=== PATIENT | female | born 1930 | race American Indian/Alaskan Native ===

== ENCOUNTER 2017-04-23 06:25 | Day surgery (SDC) | payer MEDICARE ==
[2017-04-23 07:12] VITALS: BMI 27.1
[2017-04-23 07:56] VITALS: O2SAT 100
[2017-04-23] MEDS ORDERED: Etomidate 20 mg/10ml Inj IV ONE (08:27)
[2017-04-23] MEDS ORDERED: Propofol 10 mg/ml Inj (20 ML) ONE (08:27)
--- NOTE | 2017-04-23 08:39 | CP.SDSHP ---
Same Day Surgery H & P - History Proposed Procedure: EGD Pre-Op Diagnosis: Dyspepsia, anemia - Previous Medical/Surgical History Cardiac: Hypertension Endocrine/Metabolic: Diabetes Previous Surgical History: Permanent pacemaker - Allergies Allergies: Allergies No Known Allergies Allergy (Verified 04/23/17 07:11) - Current Medications Current Medications: See reconciliation sheet - Physical Exam General Appearance: WD WN female in NAD Vital Signs: Vital Signs 04/23/17 04/23/17 07:42 08:18 Temperature 97.6 F 97.6 F Pulse Rate 65 65 Respiratory 19 19 Rate Blood Pressure 133/65 133/65 O2 Sat by Pulse 100 100 Oximetry Mental Status: Alert & Oriented x3 Neuro: WNL Heart: WNL Lungs: WNL GI: WNL - {Optional Preform as Required} Abdomen: WNL - Impression Impression: Dyspepsia, anemia Pt. Evaluated Today:Candidate for Anesthesia & Procedure: Yes - Date & Time Date: 04/23/17 Time: 08:39 Short Stay Discharge - Short Stay Discharge Admitting Diagnosis/Reason for Visit: ANEMIA Disposition: HOME/ ROUTINE
[2017-04-23 09:25] VITALS: TEMP 97.3
[2017-04-23 09:54] VITALS: BP 145/57; PULSE 65; RESP 17
== END 2017-04-23 10:20 | disposition home or self-care (01) ==
LOC: C.ENDO 06:25
PROVIDERS: ATTEND Internal Medicine Gastroenterology
DX: K29.70 Gastritis, unspecified, without bleeding (principal); D50.9 Iron deficiency anemia, unspecified; K44.9 Diaphragmatic hernia without obstruction or gangrene; I10 Essential (primary) hypertension; D64.9 Anemia, unspecified
CPT/HCPCS: 43236; 43239; 82948; 88305; J0171; J2001; J2704

== ENCOUNTER 2017-07-18 13:46 | Emergency (ER) | payer MEDICARE ==
[2017-07-18 13:46] VITALS: BMI 27.1
[2017-07-18 13:52] VITALS: O2SAT 100
[2017-07-18] MEDS ORDERED: Iohexol 240 (50 ml) PO STA (14:08)
--- NOTE | 2017-07-18 14:25 | C.PDOC ---
History Of Present Illness 87 year old female presents to Emergency Department for evaluation of gradual worsening of left flank pain for the last 3 days. Patient states that pain was initially intermittent but is more constant now. Patient states that pain radiates to the left side of her abdomen and up to the left side of her chest, described as pressure sensation. Otherwise, denies any nausea, vomiting, diarrhea, changes in bowel habits, dysuria, hematuria, frequency, cough, shortness of breath, fever, or chills. Denies having similar symptoms in the past. Time Seen by Provider: 07/18/17 13:58 Chief Complaint (Nursing): Abdominal Pain History Per: Patient History/Exam Limitations: no limitations Onset/Duration Of Symptoms: Days (3) Current Symptoms Are (Timing): Still Present Location Of Pain/Discomfort: Other (left side of abdomen) Radiation Of Pain To:: Flank (left) Quality Of Discomfort: Pressure Associated Symptoms: Back Pain. denies: Fever, Chills, Nausea, Vomiting, Diarrhea, Loss Of Appetite, Constipation, Urinary Symptoms Exacerbating Factors: None Alleviating Factors: None Recent travel outside of the [place]: No Additional History Per: Patient Abnormal Vaginal Bleeding: No Past Medical History Reviewed: Historical Data, Nursing Documentation, Vital Signs Vital Signs: Last Vital Signs Temp 97.6 F 07/18/17 13:49 Pulse 59 L 07/18/17 15:11 Resp 14 07/18/17 15:11 BP 145/72 07/18/17 15:11 Pulse Ox 100 07/18/17 15:11 - Medical History PMH: Anemia (IRON DEFICIENCY), Arthritis, CAD, Cardia Arrhythmia ("PALPATIONS"- MD NOTE: PAROXYSMAL A-FIB), Colonic Polyps (ADENOMATOUS), COPD, Diabetes, Fractures (BILAT. ARMS-SURGERY DONE-BILAT.), HTN, Hypercholesterolemia, Hyperthyroidism (NO LONGER ON MEDS.) Denies: CVA, Chronic Kidney Disease, TIA - [facility] Procedures AMBULATORY CARDIAC MONITORING (11/23/14) REVISION OR RELOCATION OF CARDIAC DEVICE POCKET (11/23/14) Family History: States: Unknown Family Hx - Social History Hx Tobacco Use: No Hx Alcohol Use: No Hx Substance Use: No - Immunization History Hx Tetanus Toxoid Vaccination: No Hx Influenza Vaccination: No Hx Pneumococcal Vaccination: No Review Of Systems Except As Marked, All Systems Reviewed And Found Negative. Constitutional: Negative for: Fever, Chills Cardiovascular: Negative for: Palpitations, Edema, Light Headedness Respiratory: Negative for: Cough, Shortness of Breath Gastrointestinal: Positive for: Abdominal Pain. Negative for: Nausea, Vomiting , Diarrhea Genitourinary: Negative for: Dysuria, Frequency, Hematuria Musculoskeletal: Positive for: Back Pain (left flank pain) Neurological: Negative for: Headache, Dizziness Physical Exam - Physical Exam Appears: Non-toxic, No Acute Distress Skin: Warm, Dry, No Rash Head: Atraumatic, Normacephalic Eye(s): bilateral: Normal Inspection, EOMI Nose: Normal Oral Mucosa: Moist Neck: Normal ROM, Supple Chest: Symmetrical Cardiovascular: Rhythm Regular Respiratory: Rales (bibasilar rales worse on the left side), No Rhonchi, No Wheezing Gastrointestinal/Abdominal: Bowel Sounds (normal), Soft, Tenderness (epigastric) , No Guarding, No Rebound Back: No CVA Tenderness, No Vertebral Tenderness Extremity: Normal ROM, No Pedal Edema Neurological/Psych: Oriented x3, Normal Speech ED Course And Treatment - Laboratory Results Result Diagrams: 07/18/17 14:52 07/18/17 16:07 Lab Interpretation: Abnormal Interpretation Of Abnormal: CBC and CMP unremarkable. Urine +WBC 54 with + leukocyte esterase O2 Sat by Pulse Oximetry: 100 (on RA) Pulse Ox Interpretation: Normal - CT Scan/US CT abdomen and pelvis with contrast Other Rad Studies (CT/US): Read By Radiologist, Radiology Report Reviewed CT/US Interpretation: Accession No. : [id number]. Patient Name / ID : JENNIFER SHELDON / [id number]. Exam Date : 07/18/2017 17:14:58 ( Approved ). Study Comment : Sex / Age : F / 87Y. Creator : Pia Shaw MD. Dictator : Pia Shaw MD. Svp : Corporate Responsibility Officer : Pia Shaw MD. Approver2 : Report Date : 07/18/2017 17:44:52. My Comment : . PROCEDURE: CT Abdomen and Pelvis with contrast. HISTORY: Abdominal pain. COMPARISON: 02/07/2017. TECHNIQUE: CT scan of the abdomen and pelvis was performed after intravenous administration of contrast. Oral contrast was administered. Coronal and sagittal reformatted images were obtained. Contrast : 100 mL Omnipaque 300. Radiation dose: Total exam DLP = 562.58 mGy-cm. This CT exam was performed using one or more of the following dose reduction techniques: Automated exposure control, adjustment of the mA and/or kV according to patient size, and/or use of iterative reconstruction technique. FINDINGS: LOWER THORAX: The lung bases are clear. LIVER: The liver is normal in size and there is homogeneous enhancement. No gross lesion or ductal dilatation. GALLBLADDER AND BILE DUCTS: The gallbladder is contracted. PANCREAS: There is mild diffuse atrophy of the pancreas. No gross lesion or ductal dilatation. SPLEEN: The spleen is normal in size and there is homogeneous enhancement. ADRENALS: Both adrenal glands are normal in size without discrete nodule. KIDNEYS AND URETERS: Both kidneys are normal in size and there is homogeneous enhancement. There is a simple cortical cyst in the upper pole of the right kidney. No hydronephrosis. No solid mass. VASCULATURE: No aortic aneurysm. BOWEL: The small bowel loops are normal in caliber. There is moderate amount of stool in the left hemicolon. No bowel dilatation or obstruction. APPENDIX: Normal appendix. PERITONEUM: No free fluid. No free air. LYMPH NODES: No enlarged lymph nodes. BLADDER: Grossly normal in appearance. REPRODUCTIVE: Unremarkable. BONES: There is diffuse bone demineralization. Is an age indeterminate but likely chronic superior endplate compression deformity in the L1 vertebral body. OTHER FINDINGS: None. IMPRESSION: No acute abdominal or pelvic abnormality. Constipation. No evidence of bowel obstruction. Progress Note: Blood work, UA, Abd & Pelvis CT, EKG, CXR ordered and reviewed. Patient was given Omnipaque PO. Reevaluation Time: 18:18 Reassessment Condition: Improved Disposition Counseled Patient/Family Regarding: Studies Performed, Diagnosis, Need For Followup, Rx Given - Disposition Referrals: Blanca Francois MD [Staff Provider] - Disposition: HOME/ ROUTINE Disposition Time: 18:21 Condition: IMPROVED Prescriptions: Nitrofurantoin Macrocrystals [Macrobid] 1 cap PO BID #14 cap Instructions: Urinary Tract Infection in Women (ED), Constipation (ED) Forms: [facility] ([place]) - Clinical Impression Clinical Impression: UTI (urinary tract infection), Constipation, Flank pain - Scribe Statement The provider has reviewed the documentation as recorded by the Scribe Paulina Chauhan All medical record entries made by the Scribe were at my direction and personally dictated by me. I have reviewed the chart and agree that the record accurately reflects my personal performance of the history, physical exam, medical decision making, and the department course for this patient. I have also personally directed, reviewed, and agree with the discharge instructions and disposition.
[2017-07-18 14:57] LABS: BASO # 0.1 K/uL (0.0-0.2); EOS # 0.2 K/uL (0.0-0.7); EOS % 3.6 % (0.0-4.0); HEMATOCRIT 36.3 % (34.0-47.0); LYMPH # 2.1 K/uL (1.0-4.3); LYMPH % 34.2 % (20.0-40.0); MEAN CELL VOLUME 89.7 fL (81.0-99.0); MEAN CORPUSCULAR HEMOGLOBIN 30.3 pg (27.0-31.0); MEAN CORPUSCULAR HGB CONC 33.7 g/dL (33.0-37.0); MEAN PLATELET VOLUME 8.5 fL (7.2-11.7); MONO # 0.7 K/uL (0.0-0.8); MONO % 11.4 % (0.0-10.0); RED CELL DISTRIBUTION WIDTH 14.5 % (11.5-14.5); WHITE BLOOD COUNT 6.2 K/uL (4.8-10.8)
[2017-07-18] MEDS ORDERED: Iohexol 240 (50 ml) ONE (14:57)
--- NOTE | 2017-07-18 15:05 | RAD ---
HISTORY: SOB COMPARISON: Chest x-ray performed 10/27/15 TECHNIQUE: Chest, one view. FINDINGS: LUNGS: Mild biapical pleural thickening. No focal consolidation. Please note that chest x-ray has limited sensitivity for the detection of pulmonary masses. PLEURA: No significant pleural effusion identified. No definite pneumothorax . CARDIOVASCULAR: Dual lead left-sided pacemaker. Borderline cardiomegaly. Tortuous aorta. Atherosclerotic calcifications. OSSEOUS STRUCTURES: Degenerative changes. Osseous demineralization. Chronic appearing deformities of bilateral humeral heads ; correlate clinically. VISUALIZED UPPER ABDOMEN: Unremarkable. OTHER FINDINGS: None. IMPRESSION: Dual lead left-sided pacemaker. Borderline cardiomegaly. Tortuous aorta. Atherosclerotic calcifications. Mild biapical pleural thickening. Chronic appearing deformities involving bilateral humeral heads. Osseous demineralization. Degenerative changes.
[2017-07-18 15:12] VITALS: RESP 14
[2017-07-18] MEDS ORDERED: Iohexol 300 100 ML IJ ONE (16:11)
[2017-07-18 16:16] LABS: CHLORIDE 99 mmol/L (98-107)
[2017-07-18 16:18] LABS: POTASSIUM 4.6 mmol/L (3.6-5.2); SODIUM 137 mmol/L (132-148)
[2017-07-18 16:20] LABS: ALB/GLOB RATIO 1.1 (1.0-2.1); ALKALINE PHOSPHATASE 91 U/L (38-126); AST/SGOT 35 U/L (14-36); BILIRUBIN,TOTAL 0.9 mg/dL (0.2-1.3); BLOOD UREA NITROGEN 26 mg/dL (7-17); CARBON DIOXIDE 27 mmol/L (22-30); GFR AFRICAN-AMERICAN > 60; TOTAL PROTEIN 7.6 g/dL (6.3-8.3)
[2017-07-18 16:21] LABS: ALT/SGPT 33 U/L (9-52); CALCIUM 9.9 mg/dl (8.6-10.4); GLUCOSE,RANDOM 128 mg/dL (65-105)
[2017-07-18 17:05] LABS: RBC URINE 1 /hpf (0-3); URINE BACTERIA FEW (<OCC); URINE BILIRUBIN NEGATIVE (NEGATIVE); URINE BLOOD NEGATIVE (NEGATIVE); URINE COLOR Yellow (YELLOW); URINE GLUCOSE (UA) NORMAL (Normal); URINE KETONE NEGATIVE (NEGATIVE); URINE LEUKOCYTE ESTERASE 2+ Leu/uL (Negative); URINE PROTEIN NEGATIVE (NEGATIVE); URINE UROBILINOGEN NORMAL mg/dL (0.2-1.0); WBC URINE 54 /hpf (0-5)
--- NOTE | 2017-07-18 17:46 | CT ---
PROCEDURE: CT Abdomen and Pelvis with contrast HISTORY: Abdominal pain COMPARISON: 02/07/2017 TECHNIQUE: CT scan of the abdomen and pelvis was performed after intravenous administration of contrast. Oral contrast was administered. Coronal and sagittal reformatted images were obtained. Contrast: 100 mL Omnipaque 300 Radiation dose: Total exam DLP = 562.58 mGy-cm. This CT exam was performed using one or more of the following dose reduction techniques: Automated exposure control, adjustment of the mA and/or kV according to patient size, and/or use of iterative reconstruction technique. FINDINGS: LOWER THORAX: The lung bases are clear. LIVER: The liver is normal in size and there is homogeneous enhancement. No gross lesion or ductal dilatation. GALLBLADDER AND BILE DUCTS: The gallbladder is contracted. PANCREAS: There is mild diffuse atrophy of the pancreas. No gross lesion or ductal dilatation. SPLEEN: The spleen is normal in size and there is homogeneous enhancement. ADRENALS: Both adrenal glands are normal in size without discrete nodule. KIDNEYS AND URETERS: Both kidneys are normal in size and there is homogeneous enhancement. There is a simple cortical cyst in the upper pole of the right kidney. No hydronephrosis. No solid mass. VASCULATURE: No aortic aneurysm. BOWEL: The small bowel loops are normal in caliber. There is moderate amount of stool in the left hemicolon. No bowel dilatation or obstruction. APPENDIX: Normal appendix. PERITONEUM: No free fluid. No free air. LYMPH NODES: No enlarged lymph nodes. BLADDER: Grossly normal in appearance. REPRODUCTIVE: Unremarkable. BONES: There is diffuse bone demineralization. Is an age indeterminate but likely chronic superior endplate compression deformity in the L1 vertebral body. OTHER FINDINGS: None. IMPRESSION: No acute abdominal or pelvic abnormality. Constipation. No evidence of bowel obstruction.
[2017-07-18 18:21] VITALS: PULSE 69; TEMP 98.2
[2017-07-18 18:43] VITALS: BP 160/63
--- NOTE | 2017-07-19 15:35 | CARD ---
APPROVED REPORT EKG Measurement Heart [id number] MA 140P [id number] <Conclusion> Atrial-paced rhythm Nonspecific intraventricular block Abnormal ECG
== END 2017-07-18 18:56 | disposition home or self-care (01) ==
LOC: C.ER 13:46
DX: N39.0 Urinary tract infection, site not specified (principal); K59.00 Constipation, unspecified; R10.9 Unspecified abdominal pain; I49.9 Cardiac arrhythmia, unspecified; I10 Essential (primary) hypertension
CPT/HCPCS: 71010; 74177; 80053; 81001; 83690; 84484; 85025; 87086; 87181; 93005; 99285; Q9966; Q9967

== ENCOUNTER 2017-07-23 13:05 | Emergency (ER) | payer MEDICARE ==
[2017-07-23 13:05] VITALS: BMI 27.1
[2017-07-23 13:36] VITALS: PULSE 60
[2017-07-23] MEDS ORDERED: Sodium Chloride 0.9% 500 ML IV STA (14:14)
[2017-07-23] MEDS ORDERED: Sodium Chloride 0.9% 500 ML IV ONE (15:09)
[2017-07-23 15:13] LABS: BASO # 0.1 K/uL (0.0-0.2); BASO % 1.6 % (0.0-2.0); EOS # 0.2 K/uL (0.0-0.7); EOS % 4.6 % (0.0-4.0); HEMATOCRIT 36.4 % (34.0-47.0); LYMPH % 36.9 % (20.0-40.0); MEAN CELL VOLUME 90.8 fL (81.0-99.0); MEAN PLATELET VOLUME 9.1 fL (7.2-11.7); MONO # 0.6 K/uL (0.0-0.8); MONO % 10.7 % (0.0-10.0); RED CELL DISTRIBUTION WIDTH 14.2 % (11.5-14.5); WHITE BLOOD COUNT 5.3 K/uL (4.8-10.8)
--- NOTE | 2017-07-23 15:18 | C.PDOC ---
History Of Present Illness 87 y/o female presents to emergency department with complaint of bilateral flank pain. Patient was seen in this ER on 07/18/17, evaluated for left flank pain, and was diagnosed with UTI and constipation, discharged on Macrobid. Patient denies fever, dysuria, or other urinary symptoms, but reports pain has not improved. Time Seen by Provider: 07/23/17 13:39 Chief Complaint (Nursing): Female Genitourinary History Per: Patient History/Exam Limitations: no limitations Onset/Duration Of Symptoms: Days Current Symptoms Are (Timing): Still Present Reports Recently: Seen In ED Recent travel outside of the [place]: No Past Medical History Reviewed: Historical Data, Nursing Documentation, Vital Signs Vital Signs: Last Vital Signs Temp 97.8 F 07/23/17 18:36 Pulse 60 07/23/17 18:36 Resp 18 07/23/17 18:36 BP 150/56 L 07/23/17 18:36 Pulse Ox 99 07/23/17 18:44 - Medical History PMH: Anemia (IRON DEFICIENCY), Arthritis, CAD, Cardia Arrhythmia ("PALPATIONS"- MD NOTE: PAROXYSMAL A-FIB), Colonic Polyps (ADENOMATOUS), COPD, Diabetes, Fractures (BILAT. ARMS-SURGERY DONE-BILAT.), HTN, Hypercholesterolemia, Hyperthyroidism (NO LONGER ON MEDS.) - [facility] Procedures AMBULATORY CARDIAC MONITORING (11/23/14) REVISION OR RELOCATION OF CARDIAC DEVICE POCKET (11/23/14) Family History: States: Unknown Family Hx - Social History Hx Tobacco Use: No Hx Alcohol Use: No Hx Substance Use: No - Immunization History Hx Tetanus Toxoid Vaccination: No Hx Influenza Vaccination: No Hx Pneumococcal Vaccination: No Review Of Systems Except As Marked, All Systems Reviewed And Found Negative. Constitutional: Negative for: Fever, Chills Cardiovascular: Negative for: Chest Pain Respiratory: Negative for: Cough, Shortness of Breath Gastrointestinal: Positive for: Abdominal Pain (bilateral flank). Negative for : Nausea, Vomiting, Constipation Genitourinary: Negative for: Dysuria, Frequency, Hematuria, Vaginal Discharge, Pelvic Pain Skin: Negative for: Rash Neurological: Negative for: Headache, Dizziness Physical Exam - Physical Exam Appears: Non-toxic, No Acute Distress Skin: Normal Color, Warm, Dry Head: Atraumatic, Normacephalic Oral Mucosa: Moist Chest: Symmetrical Cardiovascular: Rhythm Regular Respiratory: Normal Breath Sounds, No Rales, No Rhonchi, No Wheezing Gastrointestinal/Abdominal: Soft, Tenderness (diffuse), No Guarding, No Rebound Back: No CVA Tenderness, Paraspinal Tenderness (lower back) Extremity: Normal ROM Neurological/Psych: Oriented x3, Normal Speech, Normal Cognition ED Course And Treatment - Laboratory Results Result Diagrams: 07/23/17 15:07 07/23/17 15:07 ECG: Interpreted By Me ECG Rhythm: A Paced Rate From EC (bpm) O2 Sat by Pulse Oximetry: 99 Pulse Ox Interpretation: Normal - Radiology CXR: Viewed By Me, Read By Radiologist CXR Interpretation: Yes: No Acute Disease - Other Rad LS SPINE X-RAY X-Ray: Viewed By Me, Read By Radiologist Interpretation: Accession No. : [id number]. Patient Name / ID : JENNIFER SHELDON / [id number]. Exam Date : 07/23/2017 14:28:09 ( Approved ). Study Comment : Sex / Age : F / 87Y. Creator : Callum Carter MD. Dictator : Callum Carter MD. Checker Cashier : Certified Residential Medication Aide : Callum Carter MD. Approver2 : Report Date : 07/23/2017 15:22:13. My Comment : . PROCEDURE: Radiographs of the Lumbar Spine. HISTORY: BACK PAIN, ATRAUMATIC. COMPARISON : No prior. FINDINGS: BONES: Vertebral bodies maintained in height. The transverse processes and posterior elements appear intact. There is grade 1 anterolisthesis at L5-S1. DISC SPACES: Unremarkable. OTHER FINDINGS: None. IMPRESSION: No acute fracture. Grade 1 anterolisthesis at L5-S1. - CT Scan/US Ultrasound RUQ Other Rad Studies (CT/US): Read By Radiologist, Radiology Report Reviewed CT/US Interpretation: Accession No. : [id number]. Patient Name / ID : JENNIFER SHELDON / [id number]. Exam Date : 07/23/2017 15:31:45 ( Approved ). Study Comment : Sex / Age : F / 87Y. Creator : Iris Bender MD. Dictator : Iris Bender MD. Checker Cashier : Certified Residential Medication Aide : Iris Bender MD. Approver2 : Report Date : 07/23/2017 15:58:46. My Comment : . HISTORY: Pain. COMPARISON: CT abdomen and pelvis with contrast performed 07/18/17. TECHNIQUE: Sonographic evaluation of the right upper quadrant of the abdomen. FINDINGS: LIVER: Measures 11.8 and cm in length. Echogenic liver may be seen in setting of hepatic parenchymal disease or fatty infiltration. No focal hepatic mass identified. The main portal vein appears patent with normal directional flow. No intrahepatic bile duct dilatation. GALLBLADDER: No gallstones. No gallbladder wall thickening or pericholecystic edema. Negative sonographic Pinzon's sign as assessed by the speech language pathologist travel. COMMON BILE DUCT: Measures 4 mm. PANCREAS: Not well-visualized. RIGHT KIDNEY: Measures 9.7 x 3.3 x 4.7 cm. 1.5 x 1.3 x 1.5 cm upper pole anechoic avascular lesion consistent with a cyst. No obstructing calculus or hydronephrosis identified. AORTA: Limited visualization appears grossly unremarkable. IVC: Limited visualization appears grossly unremarkable. OTHER FINDINGS: None . IMPRESSION : Echogenic liver may be seen in setting of hepatic parenchymal disease or fatty infiltration. 1.5 cm right upper pole renal cyst. Progress Note: EKG, CxR, bloodwork ordered and reviewed. LS spine x-rays and abdominal ultrasound ordered and reviewd. IVFs given. On reassessment, patient is resting comfortably, and is in no acute distress. case was d/w PMD who agreed with the plan to d/c patient home on Ultracet. Patient instructed to follow up with Dr. Francois within 1-2 days. Copies of findings provided to patient to bring to PMD. Disposition - Disposition Referrals: Blanca Francois MD [Staff Provider] - Disposition: HOME/ ROUTINE Disposition Time: 18:35 Condition: STABLE Additional Instructions: Follow up with within 1-2 days. Return to Ed if feel worse. Prescriptions: traMADol/Acetaminophen [Ultracet 325 MG-37.5 MG] 1 tab PO Q6 PRN #30 tab PRN Reason: Pain Instructions: Flank Pain (ED), Back Pain (ED) Forms: [employer] ([place]) - Clinical Impression Clinical Impression: Flank pain - PA / COMMERCIAL DIRECTOR / Resident Statement MD/DO has reviewed & agrees with the documentation as recorded. - Scribe Statement The provider has reviewed the documentation as recorded by the Scribnadiya Bosch All medical record entries made by the Shayibnadiya were at my direction and personally dictated by me. I have reviewed the chart and agree that the record accurately reflects my personal performance of the history, physical exam, medical decision making, and the department course for this patient. I have also personally directed, reviewed, and agree with the discharge instructions and disposition.
[2017-07-23 15:19] LABS: INR 1.1
--- NOTE | 2017-07-23 15:23 | RAD ---
PROCEDURE: Radiographs of the Lumbar Spine. HISTORY: BACK PAIN, ATRAUMATIC COMPARISON: No prior. FINDINGS: BONES: Vertebral bodies maintained in height. The transverse processes and posterior elements appear intact. There is grade 1 anterolisthesis at L5-S1. DISC SPACES: Unremarkable. OTHER FINDINGS: None. IMPRESSION: No acute fracture. Grade 1 anterolisthesis at L5-S1.
[2017-07-23 15:27] LABS: CHLORIDE 99 mmol/L (98-107)
[2017-07-23 15:28] LABS: SODIUM 131 mmol/L (132-148)
[2017-07-23 15:30] LABS: ALB/GLOB RATIO 1.1 (1.0-2.1); ALKALINE PHOSPHATASE 90 U/L (38-126); ALT/SGPT 30 U/L (9-52); AST/SGOT 32 U/L (14-36); BILIRUBIN,TOTAL 0.8 mg/dL (0.2-1.3); BLOOD UREA NITROGEN 22 mg/dL (7-17); CARBON DIOXIDE 23 mmol/L (22-30); GFR AFRICAN-AMERICAN > 60; GLUCOSE,RANDOM 238 mg/dL (65-105); TOTAL PROTEIN 7.4 g/dL (6.3-8.3)
[2017-07-23 15:31] LABS: CALCIUM 9.3 mg/dl (8.6-10.4)
--- NOTE | 2017-07-23 15:57 | RAD ---
PROCEDURE: CHEST RADIOGRAPH, 1 VIEW HISTORY: FLANK/BACK PAIN COMPARISON: 07/18/2017 FINDINGS: LUNGS: Clear. PLEURA: No pneumothorax or pleural fluid seen. CARDIOVASCULAR: Permanent pacemaker. OSSEOUS STRUCTURES: Bilateral glenohumeral osteoarthritis. VISUALIZED UPPER ABDOMEN: Normal. OTHER FINDINGS: None. IMPRESSION: No active disease.
--- NOTE | 2017-07-23 16:00 | US ---
HISTORY: Pain COMPARISON: CT abdomen and pelvis with contrast performed 07/18/17 TECHNIQUE: Sonographic evaluation of the right upper quadrant of the abdomen. FINDINGS: LIVER: Measures 11.8 and cm in length. Echogenic liver may be seen in setting of hepatic parenchymal disease or fatty infiltration. No focal hepatic mass identified. The main portal vein appears patent with normal directional flow. No intrahepatic bile duct dilatation. GALLBLADDER: No gallstones. No gallbladder wall thickening or pericholecystic edema. Negative sonographic Pinzon's sign as assessed by the academic success coordinator. COMMON BILE DUCT: Measures 4 mm. PANCREAS: Not well-visualized. RIGHT KIDNEY: Measures 9.7 x 3.3 x 4.7 cm. 1.5 x 1.3 x 1.5 cm upper pole anechoic avascular lesion consistent with a cyst. No obstructing calculus or hydronephrosis identified. AORTA: Limited visualization appears grossly unremarkable. IVC: Limited visualization appears grossly unremarkable. OTHER FINDINGS: None . IMPRESSION: Echogenic liver may be seen in setting of hepatic parenchymal disease or fatty infiltration. 1.5 cm right upper pole renal cyst.
[2017-07-23 18:05] LABS: RBC URINE < 1 /hpf (0-3); URINE BACTERIA OCC (<OCC); URINE BILIRUBIN NEGATIVE (NEGATIVE); URINE BLOOD NEGATIVE (NEGATIVE); URINE COLOR Straw (YELLOW); URINE GLUCOSE (UA) 1+ mg/dL (Normal); URINE KETONE NEGATIVE (NEGATIVE); URINE LEUKOCYTE ESTERASE NEG Leu/uL (Negative); URINE PROTEIN NEGATIVE (NEGATIVE); URINE UROBILINOGEN NORMAL mg/dL (0.2-1.0); WBC URINE < 1 /hpf (0-5)
[2017-07-23 18:37] VITALS: BP 150/56; RESP 18; TEMP 97.8; O2SAT 99
--- NOTE | 2017-07-25 22:50 | CARD ---
APPROVED REPORT EKG Measurement Heart [id number] <Conclusion> Atrial-paced rhythm Nonspecific intraventricular block Abnormal ECG
== END 2017-07-23 19:02 | disposition home or self-care (01) ==
LOC: C.ER 13:05
DX: R10.9 Unspecified abdominal pain (principal)
CPT/HCPCS: 71010; 72100; 76705; 80053; 81001; 82550; 82553; 83690; 84484; 85025; 85610; 85730; 93005; 99285; J7040

== ENCOUNTER 2017-12-12 16:39 | Observation (INO) | payer MEDICARE ==
[2017-12-12 16:39] VITALS: BMI 27.1
--- NOTE | 2017-12-12 17:21 | C.PDOC ---
History Of Present Illness <Jojo Rodriguez - Last Filed: 12/12/17 18:15> <Darcie Smith - Last Filed: 12/12/17 19:29> 87 year old female with past medical history of diabetes, HTN, HLD, afib presents to the ED for hypoglycemia. Patient's granddaughter at bedside states she was trying to call her this morning and she was not answering her phone so she decided to go to her apartment and found her lethargic. She then called EMS and gave her grandmother juice and candies. Patient states she took her insulin in the evening, had her snack at 11pm, and when she woke up this morning she did not feel like getting out of bed. Her nephew at bedside states this occurred previously on Sunday same occurrence, patient woke up with low blood sugar and he gave her juice and peppermint candies and she then felt better. Patient states she has a mild headache currently but otherwise is feeling well. She denies sick contacts at home, denies chest pain, shortness of breath, nausea, vomiting, fever, diarrhea, constipation, or dysuria. PMD: Dr. Francois Past Medical History: diabetes, HTN, HLD, afib, pacemaker Past Surgical History: Pacemaker, left shoulder surgery Allergies: NKDA Social History: Lives at home with 91 year old sister and nephew, denies smoking , alcohol or drug use (Darcie Smith) <Jojo Rodriguez - Last Filed: 12/12/17 18:15> History Per: Patient History/Exam Limitations: no limitations <Darcie Smith - Last Filed: 12/12/17 19:29> Time Seen by Provider: 12/12/17 16:52 Chief Complaint (Nursing): Medical Clearance Past Medical History - Medical History PMH: Anemia (IRON DEFICIENCY), Arthritis, CAD, Cardia Arrhythmia ("PALPATIONS"- MD NOTE: PAROXYSMAL A-FIB), Colonic Polyps (ADENOMATOUS), COPD, Diabetes, Fractures (BILAT. ARMS-SURGERY DONE-BILAT.), HTN, Hypercholesterolemia, Hyperthyroidism (NO LONGER ON MEDS.) Denies: Chronic Kidney Disease, TIA Family History: States: Unknown Family Hx - Social History Hx Tobacco Use: No Hx Alcohol Use: No Hx Substance Use: No - Immunization History Hx Tetanus Toxoid Vaccination: No Hx Influenza Vaccination: No Hx Pneumococcal Vaccination: No <Jojo Rodriguez - Last Filed: 12/12/17 18:15> Vital Signs: Last Vital Signs Temp 97.8 F 12/12/17 17:02 Pulse 75 12/12/17 17:02 Resp 20 12/12/17 17:02 BP 141/79 12/12/17 17:02 Pulse Ox 100 12/12/17 18:15 - [facility] Procedures AMBULATORY CARDIAC MONITORING (11/23/14) REVISION OR RELOCATION OF CARDIAC DEVICE POCKET (11/23/14) Review Of Systems Constitutional: Negative for: Fever, Chills Cardiovascular: Negative for: Chest Pain, Palpitations Respiratory: Negative for: Cough, Shortness of Breath Gastrointestinal: Negative for: Nausea, Vomiting, Abdominal Pain, Diarrhea, Constipation Genitourinary: Negative for: Dysuria, Hematuria Neurological: Negative for: Weakness, Dizziness <Darcie Smith - Last Filed: 12/12/17 19:29> Physical Exam - Physical Exam Appears: Well, Non-toxic, No Acute Distress Skin: Normal Color Head: Atraumatic, Normacephalic Eye(s): bilateral: Normal Inspection, PERRL, EOMI Oral Mucosa: Moist Cardiovascular: Rhythm Irregular Respiratory: Normal Breath Sounds, No Accessory Muscle Use, No Stridor, No Wheezing Gastrointestinal/Abdominal: Normal Exam, Bowel Sounds (normal), Soft, No Tenderness, No Distention, No Guarding Extremity: No Tenderness, No Pedal Edema, No Calf Tenderness, No Swelling Neurological/Psych: Oriented x3, Normal Speech, Normal Cognition, Normal Cranial Nerves, Normal Motor, Normal Sensation (normal sensation to light touch) <Darcie Smith - Last Filed: 12/12/17 19:29> ED Course And Treatment O2 Sat by Pulse Oximetry: 100 <Jojo Rodriguez - Last Filed: 12/12/17 18:15> - Laboratory Results Result Diagrams: 12/12/17 17:21 12/12/17 17:21 ECG: Interpreted By Me <Darcie Smith - Last Filed: 12/12/17 19:29> Medical Decision Making <Jojo Rodriguez - Last Filed: 12/12/17 18:15> <Darcie Smith - Last Filed: 12/12/17 19:29> Medical Decision Making: Hypoglycemia - resolved - cbc: WNL - CMP: Glucose 139 - Repeat Acucheck: 139 - chest xray: No active disease - Patient is not sure what tablet she takes for her diabetes - EKG: Paced rhythm Asymptomatic UTI - UA: Positive - Ceftriaxone given once - Dr. Rodriguez spoke with PMD Dr. Francois who has accepted patient for observation. 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 / has examined the patient and agrees with the treatment plan. <Darcie Smith - Last Filed: 12/12/17 19:29>
[2017-12-12 17:25] LABS: BASO % 0.4 % (0.0-2.0); EOS % 0.2 % (0.0-4.0); HEMOGLOBIN 13.5 g/dL (11.0-16.0); LYMPH # 1.1 K/uL (1.0-4.3); LYMPH % 18.4 % (20.0-40.0); MEAN CELL VOLUME 93.2 fL (81.0-99.0); MEAN CORPUSCULAR HEMOGLOBIN 31.5 pg (27.0-31.0); MEAN CORPUSCULAR HGB CONC 33.8 g/dL (33.0-37.0); MEAN PLATELET VOLUME 8.8 fL (7.2-11.7); MONO # 0.4 K/uL (0.0-0.8); MONO % 5.8 % (0.0-10.0); NEUT # 4.7 K/uL (1.8-7.0); NEUT % 75.2 % (50.0-75.0); RBC 4.29 Mil/uL (3.80-5.20); RED CELL DISTRIBUTION WIDTH 13.6 % (11.5-14.5); WHITE BLOOD COUNT 6.3 K/uL (4.8-10.8)
[2017-12-12 17:38] LABS: ALB/GLOB RATIO 1.2 (1.0-2.1); ALBUMIN 3.9 g/dL (3.5-5.0); ALT/SGPT 41 U/L (9-52); AST/SGOT 40 U/L (14-36); BLOOD UREA NITROGEN 16 mg/dL (7-17); CALCIUM 10.1 mg/dl (8.6-10.4); GFR AFRICAN-AMERICAN > 60; GFR NON-AFRICAN AMERICAN > 60
--- NOTE | 2017-12-12 17:55 | RAD ---
PROCEDURE: CHEST RADIOGRAPH, 1 VIEW HISTORY: eval COMPARISON: 07/23/2017 FINDINGS: LUNGS: Clear. PLEURA: No pneumothorax or pleural fluid seen. CARDIOVASCULAR: Normal heart size. Permanent pacemaker. No congestive change. OSSEOUS STRUCTURES: No significant abnormalities. VISUALIZED UPPER ABDOMEN: Normal. OTHER FINDINGS: None. IMPRESSION: No active disease.
[2017-12-12 18:51] LABS: SQUAMOUS EPITHIAL 2 /hpf (0-5); URINE BACTERIA OCC (<OCC); URINE BILIRUBIN NEGATIVE (NEGATIVE); URINE BLOOD NEGATIVE (NEGATIVE); URINE CLARITY Hazy (Clear); URINE COLOR Yellow (YELLOW); URINE GLUCOSE (UA) 3+ mg/dL (Normal); URINE HYALINE CAST 0-2 /lpf (0-2); URINE NITRATE POSITIVE (NEGATIVE); URINE PROTEIN NEGATIVE (NEGATIVE); URINE UROBILINOGEN NORMAL mg/dL (0.2-1.0)
[2017-12-12 18:52] LABS: URINE LEUKOCYTE ESTERASE 1+ Leu/uL (Negative)
[2017-12-12] MEDS ORDERED: cefTRIAXone IV 1 gm in Dextros 50 ML IV STA (19:19)
[2017-12-12] MEDS ORDERED: cefTRIAXone IV 1 gm in Dextros 50 ML IVPB ONE (19:30)
[2017-12-13] MEDS: Ciprofloxacin 400mg/200ml D5W 400 MG/200 ML BAG IVPB SCH ×2 (02:00→13:30)
[2017-12-13] MEDS ORDERED: (Novolin R) Insulin Human Regular 100 units/ml vial SC SCH (07:30)
[2017-12-13] MEDS: Metoprolol Succinate 50 mg XL Tab PO SCH (09:49)
[2017-12-13] MEDS ORDERED: (Novolog) Insulin Aspart, Recombinant 100 u/ml 10 ml vial SC SCH (11:30)
[2017-12-13] MEDS: (Novolog) Insulin Aspart, Recombinant 100 u/ml 10 ml vial SC SCH ×2 (12:53→17:46)
--- NOTE | 2017-12-13 18:14 | CP.PCM.CON ---
History of Present Illness - History of Present Illness History of Present Illness: 87 year old female with past medical history of diabetes, HTN, HLD, afib presents to the ED for hypoglycemia. Patient's granddaughter at bedside states she was trying to call her this morning and she was not answering her phone so she decided to go to her apartment and found her lethargic. She then called EMS and gave her grandmother juice and candies. Patient states she took her insulin in the evening, had her snack at 11pm, and when she woke up this morning she did not feel like getting out of bed. Her nephew at bedside states this occurred previously on Sunday same occurrence, patient woke up with low blood sugar and he gave her juice and peppermint candies and she then felt better. Patient states she has a mild headache currently but otherwise is feeling well. She denies sick contacts at home, denies chest pain, shortness of breath, nausea, vomiting, fever, diarrhea, constipation, or dysuria. ID consulted for UTI rx in progress PMD: Dr. Francois Past Medical History: diabetes, HTN, HLD, afib, pacemaker Past Surgical History: Pacemaker, left shoulder surgery Allergies: NKDA Social History: Lives at home with 91 year old sister and nephew, denies smoking , alcohol or drug use Review of Systems - Constitutional Constitutional: As Per HPI - EENT Eyes: absent: As Per HPI, Blind Spots, Blurred Vision, Change in Vision, Decreased Night Vision, Diplopia, Discharge, Dry Eye, Exophthalmos, Floaters, Irritation, Itchy Eyes, Loss of Peripheral Vision, Pain, Photophobia, Requires Corrective Lenses, Sees Flashes, Spots in Vision, Tunnel Vision, Other Visual Disturbances, Loss of Vision, Other Ears: absent: As Per HPI, Decreased Hearing, Ear Discharge, Ear Pain, Tinnitus, Abnormal Hearing, Disequilibrium, Dizziness, Other Nose/Mouth/Throat: absent: As Per HPI, Epistaxis, Nasal Congestion, Nasal Discharge, Nasal Obstruction, Nasal Trauma, Nose Pain, Post Nasal Drip, Sinus Pain, Sinus Pressure, Bleeding Gums, Change in Voice, Dental Pain, Dry Mouth, Dysphagia, Halitosis, Hoarsness, Lip Swelling, Mouth Lesions, Mouth Pain, Odynophagia, Sore Throat, Throat Swelling, Tongue Swelling, Facial Pain, Neck Pain, Neck Mass, Other - Breasts Breasts: absent: As Per HPI, Change in Shape, Mass, Pain, Nipple Discharge, Nipple Inversion, Skin Changes, Swelling, Other - Cardiovascular Cardiovascular: absent: As Per HPI, Acrocyanosis, Chest Pain, Chest Pain at Rest , Chest Pain with Activity, Claudication, Diaphoresis, Dyspnea, Dyspnea on Exertion, Edema, Irregular Heart Rhythm, Pain Radiating to Arm/Neck/Jaw, Leg Edema, Leg Ulcers, Lightheadedness, Orthopnea, Palpitations, Paroxysmal Nocturnal Dyspnea, Pedal Edema, Radiating Pain, Rapid Heart Rate, Slow Heart Rate, Syncope, Other - Respiratory Respiratory: absent: As Per HPI, Cough, Dyspnea, Hemoptysis, Dyspnea on Exertion , Wheezing, Snoring, Stridor, Pain on Inspiration, Chest Congestion, Excessive Mucous Production, Change in Mucous Color, Pain with Coughing, Other - Gastrointestinal Gastrointestinal: absent: As Per HPI, Abdominal Pain, Belching, Bloating, Change in Bowel Habits, Change in Stool Character, Coffee Ground Emesis, Constipation, Cramping, Diarrhea, Dyspepsia, Dysphagia, Early Satiety, Excessive Flatus, Fecal Incontinence, Heartburn, Hematemesis, Hematochezia, Loose Stools, Melena, Nausea, Odynophagia, Temesmus, Vomiting, Other - Genitourinary Genitourinary: As Per HPI - Reproductive: Female Reproductive:Female: absent: As Per HPI, Amenorrhea, Amenorrhea/ Control, Currently Menstual, Cycle <21 Days, Cycle >35 Days, Cycle Variable, Menses 1-7 Days, Menses >/= 8 Days, Menses Variable, Cycle > 4 Weeks Between, No Menses for 6 Months, Heavy Menses, Light Menses, Normal Menses, Spotting Between Cycles , S/P Hysterectomy, Menopausal, Post Menopausal, Premenarche, Abnormal Vaginal Bleeding, Dysmenorrhea, Dyspareunia, Genital Lesions, Genital Pruritis, Pelvic Pain, Prolapse Symptoms, Sexual Dysfunction, Vaginal Discharge, Vaginal Dryness , Vaginal Odor, Vaginal Pruritis, Other - Menstruation Menstruation: absent: As Per HPI, Amenorrhea, Amenorrhea/ Control, Currently Menstual, Cycle <21 Days, Cycle >35 Days, Cycle Variable, Menses 1-7 Days, Menses >/= 8 Days, Menses Variable, Cycle > 4 Weeks Between, No Menses for 6 Months, Heavy Menses, Light Menses, Normal Menses, Spotting Between Cycles , S/P Hysterectomy, Menopausal, Post Menopausal, Premenarche, Abnormal Vaginal Bleeding, Dysmenorrhea, Other - Musculoskeletal Musculoskeletal: absent: As Per HPI, Abnormal Gait, Arthralgias, Atrophy, Back Pain, Deformity, Joint Swelling, Limited Range of Motion, Loss of Height, Muscle Cramps, Muscle Weakness, Myalgias, Neck Pain, Numbness, Radiating Pain into Limb, Stiffness, Tingling, Other - Integumentary Integumentary: absent: As Per HPI, Acne, Alopecia, Bleeding Lesions, Change in Hair, Change in Nails, Change in Pigmentation, Changing Lesions, Dry Skin, Erythema, Furuncle, Hirsutism, Lesions, New Lesions, Non-Healing Lesions, Photosensitivity, Pruritus, Rash, Skin Pain, Skin Ulcer, Sores, Striae, Swelling , Unusual Bruising, Wounds, Jaundice, Other - Neurological Neurological: absent: As Per HPI, Abnormal Gait, Abnormal Hearing, Abnormal Movements, Abnormal Speech, Behavioral Changes, Burning Sensations, Confusion, Convulsions, Disequilibrium, Dizziness, Numbness, Focal Weakness, Frequent Falls , Headaches, Lack of Coordination, Loss of Vision, Memory Loss, Paresthesias, Radicular Pain, Restless Legs, Sensory Deficit, Syncope, Tingling, Tremor, Vertigo, Weakness, Other Visual Disturbances, Other - Psychiatric Psychiatric: absent: As Per HPI, Abnormal Sleep Pattern, Anhedonia, Anxiety, Auditory Hallucinations, Behavioral Changes, Change in Appetite, Change in Libido, Confusion, Depression, Difficulty Concentrating, Hallucinations, Homicidal Ideation, Hopelessness, Irritability, Memory Loss, Mood Swings, Panic Attacks, Paranoia, Suicidal Ideation, Visual Hallucinations, Tactile Hallucinations, Other - Endocrine Endocrine: absent: As Per HPI, Change in Body Appearance, Change in Libido, Cold Intolorance, Deepening of Voice, Excessive Sweating, Fatigue, Flushing, Heat Intolorance, Increase in Ring/Shoe/Hat Size, Palpitations, Polydipsia, Polyphagia, Polyuria, Other - Hematologic/Lymphatic Hematologic: absent: As Per HPI, Easy Bleeding, Easy Bruising, Lymphadenopathy, Other Past Patient History - Past Medical History & Family History Past Medical History?: Yes - Past Social History Smoking Status: Former Smoker - CARDIAC Hx Cardiac Disorders: Yes (CAD, PACEMAKER) Hx Hypercholesterolemia: Yes Hx Hypertension: Yes - PULMONARY Hx Chronic Obstructive Pulmonary Disease (COPD): Yes - NEUROLOGICAL Hx Transient Ischemic Attacks (TIA): No - HEENT Hx HEENT Problems: Yes Hx Cataracts: Yes (BILAT.-SURGERY DONE.) - RENAL Hx Chronic Kidney Disease: No - ENDOCRINE/METABOLIC Hx Hyperthyroidism: Yes (NO LONGER ON MEDS.) - HEMATOLOGICAL/ONCOLOGICAL Hx Anemia: Yes (IRON DEFICIENCY) - INTEGUMENTARY Hx Dermatological Problems: No - MUSCULOSKELETAL/RHEUMATOLOGICAL Hx Arthritis: Yes - GASTROINTESTINAL Hx Gastrointestinal Disorders: Yes - GENITOURINARY/GYNECOLOGICAL Hx Genitourinary Disorders: No - PSYCHIATRIC Hx Substance Use: No - SURGICAL HISTORY Hx Surgeries: Yes Hx Cataract Extraction: Yes (BILAT. ) Hx Cardiac Catheterization: Yes Other/Comment: BILAT. ARM FX.(S)-SURGICALLY REPAIRED. - ANESTHESIA Hx Anesthesia: Yes Hx Anesthesia Reactions: No Hx Malignant Hyperthermia: No Meds Allergies/Adverse Reactions: Allergies Allergy/AdvReac Type Severity Reaction Status Date / Time No Known Allergies Allergy Verified 12/12/17 16:51 - Medications Medications: Current Medications Alprazolam (Xanax) 0.25 mg PO BID [facility] Stop: 12/20/17 10:01 Last Admin: 12/13/17 17:47 Dose: 0.25 mg Ciprofloxacin (Cipro 400mg/200ml Dsw) 400 mg in 200 mls @ 133 mls/hr IVPB Q12H [facility] Last Admin: 12/13/17 13:30 Dose: 133 mls/hr Insulin Aspart (Novolog) 0 unit SC AC [facility] PRN Reason: Protocol Last Admin: 12/13/17 17:46 Dose: 4 unit Insulin Glargine (Lantus) 12 unit SC HS [facility] Losartan Potassium (Cozaar) 100 mg PO DAILY [facility] Last Admin: 12/13/17 09:49 Dose: 100 mg Metoprolol Succinate (Toprol Xl) 50 mg PO DAILY [facility] Last Admin: 12/13/17 09:49 Dose: 50 mg Pneumococcal Polyvalent Vaccine (Pneumovax 23 Vaccine) 0.5 ml IM .ONCE ONE Stop: 12/14/17 10:01 Rivaroxaban (Xarelto) 15 mg PO DAILY [facility] Last Admin: 12/13/17 09:49 Dose: 15 mg Rosuvastatin Calcium (Crestor) 10 mg PO HS [facility] Physical Exam - Constitutional Appears: Non-toxic, Cachectic, Chronically Ill - Head Exam Head Exam: ATRAUMATIC, NORMAL INSPECTION, NORMOCEPHALIC - Eye Exam Eye Exam: PERRL. absent: Scleral icterus - ENT Exam ENT Exam: Mucous Membranes Dry, Normal External Ear Exam - Neck Exam Neck exam: Negative for: Lymphadenopathy - Respiratory Exam Respiratory Exam: Decreased Breath Sounds, Rhonchi - Cardiovascular Exam Cardiovascular Exam: REGULAR RHYTHM, +S1, +S2 - GI/Abdominal Exam GI & Abdominal Exam: Diminished Bowel Sounds, Soft. absent: Tenderness - Rectal Exam Rectal Exam: Deferred - Exam Exam: NORMAL INSPECTION - Extremities Exam Extremities exam: Negative for: pedal edema - Back Exam Back exam: absent: CVA tenderness (L), CVA tenderness (R) - Neurological Exam Neurological exam: Alert, CN II-XII Intact, Oriented x3, Reflexes Normal - Psychiatric Exam Psychiatric exam: Normal Mood - Skin Skin Exam: Dry Results - Vital Signs Recent Vital Signs: Last Vital Signs Temp 98.3 F 12/13/17 16:00 Pulse 63 12/13/17 16:00 Resp 18 12/13/17 16:00 BP 117/74 12/13/17 16:00 Pulse Ox 94 L 12/13/17 16:00 - Labs Result Diagrams: 12/12/17 17:21 12/12/17 17:21 Labs: Laboratory Results - last 24 hr 12/12/17 12/13/17 12/13/17 18:38 06:44 08:13 POC Glucose (mg/dL) 477 H* 416 H* Urine Color Yellow Urine Clarity Hazy Urine pH 5.0 Ur Specific [place] 1.017 Urine Protein Negative Urine Glucose (UA) 3+ H Urine Ketones Trace Urine Blood Negative Urine Nitrate Positive H Urine Bilirubin Negative Urine Urobilinogen Normal Ur Leukocyte Esterase 1+ H Urine WBC (Auto) 8 H Ur Squamous Epith Cells 2 Ur Transition Epith Cell < 1 Urine Bacteria Occ H Hyaline Casts 0-2 12/13/17 12/13/17 11:52 16:58 POC Glucose (mg/dL) 331 H 334 H Urine Color Urine Clarity Urine pH Ur Specific [place] Urine Protein Urine Glucose (UA) Urine Ketones Urine Blood Urine Nitrate Urine Bilirubin Urine Urobilinogen Ur Leukocyte Esterase Urine WBC (Auto) Ur Squamous Epith Cells Ur Transition Epith Cell Urine Bacteria Hyaline Casts Assessment & Plan (1) Hypoglycemia Status: Acute (2) Acute bronchitis Status: Acute (3) COPD (chronic obstructive pulmonary disease) with acute bronchitis Status: Acute (4) Constipation Status: Acute (5) Dehydration symptoms Status: Acute (6) Dyspnea Status: Acute (7) Failure to thrive in adult Status: Acute (8) UTI (urinary tract infection) Status: Acute - Assessment and Plan (Free Text) Assessment: iv antibiotics in progress await cultures cont rx
--- NOTE | 2017-12-13 18:53 | CARD ---
APPROVED REPORT EKG Measurement Heart [id number] <Conclusion> Normal sinus rhythm Ventricular pacing. Abnormal ECG
[2017-12-13] MEDS: (Lantus) Insulin Glargine, Recombinant SC SCH (22:13)
[2017-12-14] MEDS: Ciprofloxacin 400mg/200ml D5W 400 MG/200 ML BAG IVPB SCH ×2 (01:57→13:37)
[2017-12-14 02:03] VITALS: RESP 20
[2017-12-14] MEDS: (Novolog) Insulin Aspart, Recombinant 100 u/ml 10 ml vial SC SCH ×3 (08:25→17:42)
[2017-12-14] MEDS ORDERED: Pneumococcal 23-Valent Vaccine IM ONE (10:00)
[2017-12-14] MEDS: Metoprolol Succinate 50 mg XL Tab PO SCH (10:30)
[2017-12-14] MEDS: Benzocaine/Menthol (Cepacol) Lozenge MT SCH ×3 (13:00→20:51)
--- NOTE | 2017-12-14 15:53 | CP.PCM.HP ---
History of Present Illness - History of Present Illness History of Present Illness: CC: hypoglycemia HPI: 87 year old female with past medical history of diabetes, HTN, HLD, afib presents to the ED for hypoglycemia. Patient's granddaughter at bedside states she was trying to call her this morning and she was not answering her phone so she decided to go to her apartment and found her lethargic. She then called EMS and gave her grandmother juice and candies. Patient states she took her insulin in the evening, had her snack at 11pm, and when she woke up this morning she did not feel like getting out of bed. Her nephew at bedside states this occurred previously on Sunday same occurrence, patient woke up with low blood sugar and he gave her juice and peppermint candies and she then felt better. Patient states she has a mild headache currently but otherwise is feeling well. She denies sick contacts at home, denies chest pain, shortness of breath, nausea, vomiting, fever, diarrhea, constipation, or dysuria Present on Admission - Present on Admission Any Indicators Present on Admission: Yes History of Uncontrolled Diabetes: Yes Review of Systems - Constitutional Constitutional: Daytime Sleepiness - Cardiovascular Cardiovascular: Palpitations. absent: Chest Pain, Dyspnea on Exertion - Respiratory Respiratory: absent: Cough, Dyspnea, Dyspnea on Exertion - Gastrointestinal Gastrointestinal: absent: Abdominal Pain, Melena, Nausea - Genitourinary Genitourinary: Dysuria - Musculoskeletal Musculoskeletal: Arthralgias - Neurological Neurological: Confusion, Dizziness. absent: Focal Weakness Past Patient History - Past Medical History & Family History Past Medical History?: Yes - Past Social History Smoking Status: Former Smoker - CARDIAC Hx Cardiac Disorders: Yes (CAD, PACEMAKER) Hx Hypercholesterolemia: Yes Hx Hypertension: Yes - PULMONARY Hx Chronic Obstructive Pulmonary Disease (COPD): Yes - NEUROLOGICAL Hx Transient Ischemic Attacks (TIA): No - HEENT Hx HEENT Problems: Yes Hx Cataracts: Yes (BILAT.-SURGERY DONE.) - RENAL Hx Chronic Kidney Disease: No - ENDOCRINE/METABOLIC Hx Hyperthyroidism: Yes (NO LONGER ON MEDS.) - HEMATOLOGICAL/ONCOLOGICAL Hx Anemia: Yes (IRON DEFICIENCY) - INTEGUMENTARY Hx Dermatological Problems: No - MUSCULOSKELETAL/RHEUMATOLOGICAL Hx Arthritis: Yes - GASTROINTESTINAL Hx Gastrointestinal Disorders: Yes - GENITOURINARY/GYNECOLOGICAL Hx Genitourinary Disorders: No - PSYCHIATRIC Hx Substance Use: No - SURGICAL HISTORY Hx Surgeries: Yes Hx Cataract Extraction: Yes (BILAT. ) Hx Cardiac Catheterization: Yes Other/Comment: BILAT. ARM FX.(S)-SURGICALLY REPAIRED. - ANESTHESIA Hx Anesthesia: Yes Hx Anesthesia Reactions: No Hx Malignant Hyperthermia: No Meds Allergies/Adverse Reactions: Allergies Allergy/AdvReac Type Severity Reaction Status Date / Time No Known Allergies Allergy Verified 12/12/17 16:51 Physical Exam - Constitutional Appears: Non-toxic - Head Exam Head Exam: ATRAUMATIC - Eye Exam Eye Exam: absent: Scleral icterus - Neck Exam Neck exam: Positive for: Full Rom. Negative for: Lymphadenopathy - Respiratory Exam Respiratory Exam: absent: Decreased Breath Sounds - Cardiovascular Exam Cardiovascular Exam: REGULAR RHYTHM - GI/Abdominal Exam GI & Abdominal Exam: Soft. absent: Tenderness - Extremities Exam Extremities exam: Positive for: pedal edema. Negative for: calf tenderness - Neurological Exam Neurological exam: Alert Results - Vital Signs Recent Vital Signs: Last Vital Signs Temp 98 F 12/14/17 07:00 Pulse 70 12/14/17 12:15 Resp 20 12/14/17 07:00 BP 110/69 12/14/17 10:29 Pulse Ox 98 12/14/17 07:00 - Labs Result Diagrams: 12/12/17 17:21 12/12/17 17:21 Labs: Laboratory Results - last 24 hr 12/13/17 12/13/17 12/14/17 16:58 20:58 06:26 POC Glucose (mg/dL) 334 H 228 H 226 H 12/14/17 11:47 POC Glucose (mg/dL) 219 H Assessment & Plan - Assessment and Plan (Free Text) Assessment: Hypoglycemia UTI T2dm Paroxysmal atrial fibrillation Plan: Will switch to Accucheck QID w/ low dose coverage temporarily Close monitoring of BS ID consult w/ Dr Gustafson - Date & Time Date: 12/13/17 Time: 07:30
--- NOTE | 2017-12-14 16:03 | CP.PCM.PN ---
Subjective - Date & Time of Evaluation Date of Evaluation: 12/14/17 Time of Evaluation: 08:30 - Subjective Subjective: feels better no headache ambulating w/ assistance inside the room Objective - Vital Signs/Intake and Output Vital Signs (last 24 hours): Temp Pulse Resp BP Pulse Ox 98 F 70 20 110/69 98 12/14/17 07:00 12/14/17 12:15 12/14/17 07:00 12/14/17 10:29 12/14/17 07:00 Intake and Output: 12/14/17 12/14/17 06:59 18:59 Intake Total 320 600 Balance 320 600 - Medications Medications: Current Medications Alprazolam (Xanax) 0.25 mg PO BID [facility] Stop: 12/20/17 10:01 Last Admin: 12/14/17 10:29 Dose: Not Given Benzocaine/Menthol (Cepacol Sore Throat) 1 david MT Q4 [facility] Last Admin: 12/14/17 13:00 Dose: 1 david Ciprofloxacin (Cipro 400mg/200ml Dsw) 400 mg in 200 mls @ 133 mls/hr IVPB Q12H [facility] Last Admin: 12/14/17 13:37 Dose: 133 mls/hr Insulin Aspart (Novolog) 0 unit SC [facility] PRN Reason: Protocol Last Admin: 12/14/17 12:11 Dose: 2 unit Insulin Glargine (Lantus) 12 unit SC [facility] Last Admin: 12/13/17 22:13 Dose: 12 u Losartan Potassium (Cozaar) 100 mg PO DAILY [facility] Last Admin: 12/14/17 10:31 Dose: 100 mg Metoprolol Succinate (Toprol Xl) 50 mg PO DAILY [facility] Last Admin: 12/14/17 10:30 Dose: 50 mg Rivaroxaban (Xarelto) 15 mg PO DAILY [facility] Last Admin: 12/14/17 10:30 Dose: 15 mg Rosuvastatin Calcium (Crestor) 10 mg PO [facility] Last Admin: 12/13/17 22:13 Dose: 10 mg - Labs Labs: 12/12/17 17:21 12/12/17 17:21 - Constitutional Appears: Non-toxic - Eye Exam Eye Exam: absent: Scleral icterus - ENT Exam ENT Exam: Mucous Membranes Moist - Neck Exam Neck Exam: Full ROM - Respiratory Exam Respiratory Exam: Clear to Ausculation Bilateral - Cardiovascular Exam Cardiovascular Exam: REGULAR RHYTHM - GI/Abdominal Exam GI & Abdominal Exam: absent: Soft, Tenderness - Extremities Exam Extremities Exam: absent: Calf Tenderness, Pedal Edema - Neurological Exam Neurological Exam: Alert, Awake, Oriented x3 Assessment and Plan - Assessment and Plan (Free Text) Assessment: Hypoglycemia Paroxysmal Afib HTN T2dm Plan: Cont meds Cont close monitoring of the BS Cont abtx
--- NOTE | 2017-12-14 19:02 | CP.PCM.PN ---
Subjective - Date & Time of Evaluation Date of Evaluation: 12/14/17 Time of Evaluation: 08:00 - Subjective Subjective: awake alert denies chest pain or sob NO loc CULTURES SO FAR NEG Objective - Vital Signs/Intake and Output Vital Signs (last 24 hours): Temp Pulse Resp BP Pulse Ox 97.9 F 61 20 134/69 98 12/14/17 15:05 12/14/17 15:05 12/14/17 15:05 12/14/17 15:05 12/14/17 15:05 Intake and Output: 12/14/17 12/14/17 06:59 18:59 Intake Total 320 600 Balance 320 600 - Medications Medications: Current Medications Alprazolam (Xanax) 0.25 mg PO BID [facility] Stop: 12/20/17 10:01 Last Admin: 12/14/17 17:43 Dose: 0.25 mg Benzocaine/Menthol (Cepacol Sore Throat) 1 david MT Q4 [facility] Last Admin: 12/14/17 16:00 Dose: Not Given Ciprofloxacin (Cipro 400mg/200ml Dsw) 400 mg in 200 mls @ 133 mls/hr IVPB Q12H [facility] Last Admin: 12/14/17 13:37 Dose: 133 mls/hr Insulin Aspart (Novolog) 0 unit SC AC [facility] PRN Reason: Protocol Last Admin: 12/14/17 17:42 Dose: 4 unit Insulin Glargine (Lantus) 12 unit SC [facility] Last Admin: 12/13/17 22:13 Dose: 12 u Losartan Potassium (Cozaar) 100 mg PO DAILY [facility] Last Admin: 12/14/17 10:31 Dose: 100 mg Metoprolol Succinate (Toprol Xl) 50 mg PO DAILY [facility] Last Admin: 12/14/17 10:30 Dose: 50 mg Rivaroxaban (Xarelto) 15 mg PO DAILY [facility] Last Admin: 12/14/17 10:30 Dose: 15 mg Rosuvastatin Calcium (Crestor) 10 mg PO [facility] Last Admin: 12/13/17 22:13 Dose: 10 mg - Labs Labs: 12/12/17 17:21 12/12/17 17:21 - Constitutional Appears: Non-toxic, Chronically Ill - Head Exam Head Exam: NORMOCEPHALIC - Eye Exam Eye Exam: PERRL - ENT Exam ENT Exam: Mucous Membranes Dry - Neck Exam Neck Exam: absent: Lymphadenopathy - Respiratory Exam Respiratory Exam: Decreased Breath Sounds, Clear to Ausculation Bilateral - Cardiovascular Exam Cardiovascular Exam: REGULAR RHYTHM - GI/Abdominal Exam GI & Abdominal Exam: Distended, Soft. absent: Tenderness - Rectal Exam Rectal Exam: Deferred - Exam Exam: NORMAL INSPECTION - Extremities Exam Extremities Exam: absent: Pedal Edema - Back Exam Back Exam: absent: CVA tenderness (L), CVA tenderness (R) - Neurological Exam Neurological Exam: Alert, Awake, CN II-XII Intact, Oriented x3 Neuro motor strength exam: Left Upper Extremity: 4, Right Upper Extremity: 4, Left Lower Extremity: 4, Right Lower Extremity: 4 - Psychiatric Exam Psychiatric exam: Normal Mood - Skin Skin Exam: Dry, Intact Assessment and Plan (1) Hypoglycemia Status: Acute (2) Acute bronchitis Status: Acute (3) COPD (chronic obstructive pulmonary disease) with acute bronchitis Status: Acute (4) Constipation Status: Acute (5) Dehydration symptoms Status: Acute (6) Dyspnea Status: Acute (7) Failure to thrive in adult Status: Acute (8) UTI (urinary tract infection) Status: Acute - Assessment and Plan (Free Text) Assessment: CONT RX ORDERED POSSIBLE D//C ON PO RX IN AM
[2017-12-14] MEDS: (Lantus) Insulin Glargine, Recombinant SC SCH (22:05)
[2017-12-15] MEDS: Benzocaine/Menthol (Cepacol) Lozenge MT SCH ×5 (00:37→12:40)
[2017-12-15] MEDS: Ciprofloxacin 400mg/200ml D5W 400 MG/200 ML BAG IVPB SCH ×2 (01:12→14:32)
[2017-12-15 06:59] LABS: BASO % 0.8 % (0.0-2.0); EOS # 0.1 K/uL (0.0-0.7); HEMOGLOBIN 10.7 g/dL (11.0-16.0); LYMPH # 1.7 K/uL (1.0-4.3); LYMPH % 37.8 % (20.0-40.0); MEAN CELL VOLUME 92.8 fL (81.0-99.0); MEAN CORPUSCULAR HEMOGLOBIN 32.3 pg (27.0-31.0); MEAN CORPUSCULAR HGB CONC 34.8 g/dL (33.0-37.0); MEAN PLATELET VOLUME 8.3 fL (7.2-11.7); MONO # 0.6 K/uL (0.0-0.8); NEUT # 2.1 K/uL (1.8-7.0); NEUT % 46.4 % (50.0-75.0); NRBC % 0.1 % (0.0-2.0); RBC 3.32 Mil/uL (3.80-5.20); RED CELL DISTRIBUTION WIDTH 13.5 % (11.5-14.5); WHITE BLOOD COUNT 4.5 K/uL (4.8-10.8)
[2017-12-15 07:27] LABS: ALB/GLOB RATIO 1.1 (1.0-2.1); ALBUMIN 2.8 g/dL (3.5-5.0); ALT/SGPT 33 U/L (9-52); AST/SGOT 37 U/L (14-36); BLOOD UREA NITROGEN 11 mg/dL (7-17); CALCIUM 8.2 mg/dl (8.6-10.4); GFR AFRICAN-AMERICAN > 60; GFR NON-AFRICAN AMERICAN > 60
[2017-12-15] MEDS: (Novolog) Insulin Aspart, Recombinant 100 u/ml 10 ml vial SC SCH ×2 (08:30→12:37)
[2017-12-15 08:52] VITALS: BP 108/65; TEMP 97.7; O2SAT 100
[2017-12-15] MEDS: Metoprolol Succinate 50 mg XL Tab PO SCH (09:27)
[2017-12-15 13:38] VITALS: PULSE 67
--- NOTE | 2017-12-15 16:08 | CP.PCM.PN ---
Subjective - Date & Time of Evaluation Date of Evaluation: 12/15/17 Time of Evaluation: 16:08 Objective - Vital Signs/Intake and Output Vital Signs (last 24 hours): Temp Pulse Resp BP Pulse Ox 97.7 F 67 20 108/65 100 12/15/17 08:51 12/15/17 09:00 12/15/17 08:51 12/15/17 08:51 12/15/17 08:51 Intake and Output: 12/15/17 12/15/17 06:59 18:59 Intake Total 320 Balance 320 - Medications Medications: Current Medications Alprazolam (Xanax) 0.25 mg PO BID [facility] Stop: 12/20/17 10:01 Last Admin: 12/15/17 09:27 Dose: 0.25 mg Benzocaine/Menthol (Cepacol Sore Throat) 1 david MT Q4 [facility] Last Admin: 12/15/17 12:40 Dose: 1 david Ciprofloxacin (Cipro 400mg/200ml Dsw) 400 mg in 200 mls @ 133 mls/hr IVPB Q12H [facility] Last Admin: 12/15/17 14:32 Dose: 133 mls/hr Insulin Aspart (Novolog) 0 unit SC [facility] PRN Reason: Protocol Last Admin: 12/15/17 12:37 Dose: 1 unit Insulin Glargine (Lantus) 12 unit SC [facility] Last Admin: 12/14/17 22:05 Dose: 12 u Losartan Potassium (Cozaar) 100 mg PO DAILY [facility] Last Admin: 12/15/17 09:27 Dose: 100 mg Metoprolol Succinate (Toprol Xl) 50 mg PO DAILY [facility] Last Admin: 12/15/17 09:27 Dose: 50 mg Rivaroxaban (Xarelto) 15 mg PO DAILY [facility] Last Admin: 12/15/17 09:26 Dose: 15 mg Rosuvastatin Calcium (Crestor) 10 mg PO [facility] Last Admin: 12/14/17 22:04 Dose: 10 mg - Labs Labs: 12/15/17 06:43 12/15/17 06:43 Assessment and Plan - Assessment and Plan (Free Text) Assessment: FOLLOW UP WITH DR BRO IN 1-2 WEEK AT HIS OFFICE ---CALL FOR APPOINTMENT CONTINUE ALL YOUR HOME MEDICATION CHANGE MADE TO LANTUS DECREASE TO 12 UNIT AT BACTRIM DS DAILY FOR 5 DAYS ACTIVITY TOLERATED CALL DR BRO OR GO TO THE EMERGENCY ROOM IF SYMPTOMS RETURN OR WORSENING
--- NOTE | 2017-12-16 20:24 | CP.PCM.DIS ---
Provider - Provider Date of Admission: 12/12/17 19:18 Attending physician: Blanca Bro MD Primary care physician: Dr Blanca Bro Consults: None Time Spent in preparation of Discharge (in minutes): 35 Diagnosis - Discharge Diagnosis (1) Hypoglycemia associated with type 2 diabetes mellitus Status: Acute Hospital Course - Lab Results Lab Results: Micro Results 12/13/17 01:25 Urine,Clean Catch Urine Culture - Final 10-50,000 CFU/ML. MULTIPLE SPECIES. PROBABLE CONTAMINATION. Most Recent Lab Values WBC 4.5 K/uL (4.8-10.8) L 12/15/17 06:43 RBC 3.32 Mil/uL (3.80-5.20) L 12/15/17 06:43 Hgb 10.7 g/dL (11.0-16.0) L D 12/15/17 06:43 Hct 30.8 % (34.0-47.0) L 12/15/17 06:43 MCV 92.8 fL (81.0-99.0) 12/15/17 06:43 MCH 32.3 pg (27.0-31.0) H 12/15/17 06:43 MCHC 34.8 g/dL (33.0-37.0) 12/15/17 06:43 RDW 13.5 % (11.5-14.5) 12/15/17 06:43 Plt Count 187 K/uL (130-400) 12/15/17 06:43 MPV 8.3 fL (7.2-11.7) 12/15/17 06:43 Neut % (Auto) 46.4 % (50.0-75.0) L 12/15/17 06:43 Lymph % (Auto) 37.8 % (20.0-40.0) 12/15/17 06:43 [place] % (Auto) 13.0 % (0.0-10.0) H 12/15/17 06:43 Eos % (Auto) 2.0 % (0.0-4.0) 12/15/17 06:43 Baso % (Auto) 0.8 % (0.0-2.0) 12/15/17 06:43 Neut # (Auto) 2.1 K/uL (1.8-7.0) 12/15/17 06:43 Lymph # (Auto) 1.7 K/uL (1.0-4.3) 12/15/17 06:43 [place] # (Auto) 0.6 K/uL (0.0-0.8) 12/15/17 06:43 Eos # (Auto) 0.1 K/uL (0.0-0.7) 12/15/17 06:43 Baso # (Auto) 0.0 K/uL (0.0-0.2) 12/15/17 06:43 Sodium 138 mmol/L (132-148) 12/15/17 06:43 Potassium 3.9 mmol/L (3.6-5.2) 12/15/17 06:43 Chloride 100 mmol/L (98-107) 12/15/17 06:43 Carbon Dioxide 27 mmol/L (22-30) 12/15/17 06:43 Anion Gap 15 (10-20) 12/15/17 06:43 BUN 11 mg/dL (7-17) 12/15/17 06:43 Creatinine 0.8 mg/dL (0.7-1.2) 12/15/17 06:43 Est GFR ( Amer) > 60 12/15/17 06:43 Est GFR (Non-Af Amer) > 60 12/15/17 06:43 POC Glucose (mg/dL) 310 mg/dL (65-110) H 12/15/17 11:57 Random Glucose 201 mg/dL (65-105) H 12/15/17 06:43 Calcium 8.2 mg/dl (8.6-10.4) L 12/15/17 06:43 Total Bilirubin 0.4 mg/dL (0.2-1.3) 12/15/17 06:43 AST 37 U/L (14-36) H 12/15/17 06:43 ALT 33 U/L (9-52) 12/15/17 06:43 Alkaline Phosphatase 55 U/L (38-126) 12/15/17 06:43 Total Protein 5.4 g/dL (6.3-8.3) L 12/15/17 06:43 Albumin 2.8 g/dL (3.5-5.0) L D 12/15/17 06:43 Globulin 2.6 gm/dL (2.2-3.9) 12/15/17 06:43 Albumin/Globulin Ratio 1.1 (1.0-2.1) 12/15/17 06:43 Urine Color Yellow (YELLOW) 12/12/17 18:38 Urine Clarity Hazy (Clear) 12/12/17 18:38 Urine pH 5.0 (5.0-8.0) 12/12/17 18:38 Ur Specific [place] 1.017 (1.003-1.030) 12/12/17 18:38 Urine Protein Negative mg/dL (NEGATIVE) 12/12/17 18:38 Urine Glucose (UA) 3+ mg/dL (Normal) H 12/12/17 18:38 Urine Ketones Trace mg/dL (NEGATIVE) 12/12/17 18:38 Urine Blood Negative (NEGATIVE) 12/12/17 18:38 Urine Nitrate Positive (NEGATIVE) H 12/12/17 18:38 Urine Bilirubin Negative (NEGATIVE) 12/12/17 18:38 Urine Urobilinogen Normal mg/dL (0.2-1.0) 12/12/17 18:38 Ur Leukocyte Esterase 1+ [place]/uL (Negative) H 12/12/17 18:38 Urine WBC (Auto) 8 /hpf (0-5) H 12/12/17 18:38 Ur Squamous Epith Cells 2 /hpf (0-5) 12/12/17 18:38 Ur Transition Epith Cell < 1 /hpf (0-3) 12/12/17 18:38 Urine Bacteria Occ (<OCC) H 12/12/17 18:38 Hyaline Casts 0-2 /lpf (0-2) 12/12/17 18:38 - Hospital Course Hospital Course: Pt admitted after she collapsed after taking her insulin but failed to eat after that. BS taken was around 60. [place] juice/glucose given w/ good response. Pt was admitted for obervation due to her history of glipizide intake which has a longer half life. - Date & Time of H&P Date of H&P: 12/15/17 Time of H&P: 16:00 Discharge Exam - Head Exam Head Exam: NORMOCEPHALIC - Eye Exam Eye Exam: absent: Scleral icterus - ENT Exam ENT Exam: Mucous Membranes Moist - Neck Exam Neck exam: Full Rom - Respiratory Exam Respiratory Exam: absent: Decreased Breath Sounds - Cardiovascular Exam Cardiovascular Exam: REGULAR RHYTHM - GI/Abdominal Exam GI & Abdominal Exam: Normal Bowel Sounds, Soft. absent: Tenderness - Extremities Exam Additional comments: no pedal edema - Neurological Exam Neurological exam: Alert, Oriented x3 Discharge Plan - Discharge Medications Prescriptions: Sulfamethoxazole/Trimethoprim [Bactrim DS 800 mg-160 mg] 1 tab PO DAILY 5 Days tab Insulin Glargine, Recombina [Lantus] 12 unit SC HS #12 unit - Follow Up Plan Condition: FAIR Disposition: HOME/ ROUTINE Instructions: Low Blood Sugar in People With Diabetes, Dyspnea (GEN) Additional Instructions: FOLLOW UP WITH DR BRO IN 1-2 WEEK AT HIS OFFICE ---CALL FOR APPOINTMENT CONTINUE ALL YOUR HOME MEDICATION CHANGE MADE TO LANTUS DECREASE TO 12 UNIT AT HS BACTRIM DS DAILY FOR 5 DAYS ACTIVITY TOLERATED CALL DR BRO OR GO TO THE EMERGENCY ROOM IF SYMPTOMS RETURN OR WORSENING Referrals: Blanca Bro MD [Staff Provider] - Humberto Gustafson MD [Staff Provider] -
== END 2017-12-15 17:30 | disposition home or self-care (01) ==
LOC: C.ER 16:39 → C.9E 19:18 → C.6T 22:47
PROVIDERS: ADMIT Internal Medicine; ATTEND Internal Medicine
DX: E11.649 Type 2 diabetes mellitus with hypoglycemia without coma (principal); I48.0 Paroxysmal atrial fibrillation; I10 Essential (primary) hypertension; Z95.0 Presence of cardiac pacemaker; Z86.010 Personal history of colon polyps; J44.0 Chronic obstructive pulmonary disease with (acute) lower respiratory infection; I25.10 Atherosclerotic heart disease of native coronary artery without angina pectoris; M19.90 Unspecified osteoarthritis, unspecified site; D50.9 Iron deficiency anemia, unspecified; N39.0 Urinary tract infection, site not specified; Z87.891 Personal history of nicotine dependence; E78.00 Pure hypercholesterolemia, unspecified; J20.9 Acute bronchitis, unspecified; K59.00 Constipation, unspecified; E86.0 Dehydration; R62.7 Adult failure to thrive; Z79.4 Long term (current) use of insulin; Z79.84 Long term (current) use of oral hypoglycemic drugs
CPT/HCPCS: 36415; 71045; 80053; 81001; 82948; 85025; 87086; 93005; 96360; 97116; 97161; 99284; G0378; G8978; G8979; J0696; J0744